=== PATIENT | female | born 1995 | race Two or more races ===

== ENCOUNTER → 2017-01-08 | Outpatient (REF) | payer OTHER | LOC: M SFHCLERA 15:23 | PROVIDERS: ATTEND Nurse Practitioner Family | DX: R10.33 Periumbilical pain (principal) ==

== ENCOUNTER 2017-02-13 23:06 | Emergency (ER) | payer BC, OTHER ==
[~2017-02-13] VITALS: Ht 165.1 cm; Wt 58.1 kg
[2017-02-14 00:29] LABS: BASO % 0.6 % (0.0-1.0); EOS # 0.2 K/mm3 (0.0-0.50); EOS % 2.8 % (0.0-3.0); LARGE UNSTAINED CELL # 0.1 K/mm3 (0.0-0.4); LARGE UNSTAINED CELL % 1.5 % (0.0-4.0); LYMPH # 2.3 K/mm3 (1.5-6.5); LYMPH % 28.5 % (24.0-44.0); MEAN CORPUSCULAR HEMOGLOBIN 28.1 pg (27.0-33.0); MEAN CORPUSCULAR HGB CONC 33.4 g/dl (32.0-36.5); MEAN CORPUSCULAR VOLUME 84.1 fl (80.0-96.0); MONO # 0.5 K/mm3 (0.0-0.8); MONO % 6.3 % (0.0-5.0); NEUTROPHILS # 4.7 K/mm3 (1.8-7.7); NEUTROPHILS % 60.3 % (36.0-66.0); PLATELET COUNT, AUTOMATED 195 k/mm3 (150-450); RED CELL DISTRIBUTION WIDTH 13.4 % (11.5-14.5); WHITE BLOOD COUNT 7.8 K/mm3 (4.0-10.0)
[2017-02-14 00:55] LABS: CONTROL LINE HCG INT CTR LINE PRESENT
[2017-02-14 01:03] LABS: ALBUMIN 3.4 GM/DL (3.2-5.2); ALBUMIN/GLOBULIN RATIO 0.94 (1.00-1.93); ALKALINE PHOSPHATASE 62 U/L (45-117); ALT/SGPT 22 U/L (12-78); AMYLASE 55 U/L (25-115); ANION GAP 6 MEQ/L (8-16); AST/SGOT 16 U/L (15-37); BILIRUBIN,DIRECT < 0.1 MG/DL (0.0-0.2); BILIRUBIN,TOTAL 0.1 MG/DL (0.2-1.0); BLOOD UREA NITROGEN 16 MG/DL (7-18); CALCIUM LEVEL 8.4 MG/DL (8.5-10.1); CARBON DIOXIDE LEVEL 29 MEQ/L (21-32); CHLORIDE LEVEL 105 MEQ/L (98-107); CREATININE FOR GFR 0.81 MG/DL (0.55-1.02); GLUCOSE, FASTING 91 MG/DL (70-105); POTASSIUM SERUM 3.8 MEQ/L (3.5-5.1); SODIUM LEVEL 140 MEQ/L (136-145)
[2017-02-14 02:53] VITALS: BP 111/54
== END 2017-02-14 02:53 | disposition home or self-care (01) ==
LOC: M ED 02-14 00:18
DX: K56.41 Fecal impaction (principal)

== ENCOUNTER 2017-03-24 11:50 | Emergency (ER) | payer OTHER, BC ==
[~2017-03-24] VITALS: Ht 165.1 cm; Wt 61.4 kg
[2017-03-24] MEDS ORDERED: IBUPROFEN 400 MG TAB PO ONE (13:45)
[2017-03-24] MEDS ORDERED: ACETAMINOPHEN TAB 650MG DOSE (2X325MG) PO ONE (13:45)
[2017-03-24 14:47] VITALS: BP 122/64
== END 2017-03-24 14:48 | disposition home or self-care (01) ==
LOC: M ED 11:50
DX: S09.90XA Unspecified injury of head, initial encounter (principal); R51 Headache; V43.52XA Car driver injured in collision with other type car in traffic accident, initial encounter; Y92.410 Unspecified street and highway as the place of occurrence of the external cause; Z91.030 Bee allergy status

== ENCOUNTER 2017-04-26 16:50 | Emergency (ER) | payer OTHER ==
[~2017-04-26] VITALS: Ht 160 cm; Wt 61.4 kg
[2017-04-26] MEDS ORDERED: LEVO25TA5 PO (17:02)
[2017-04-26] MEDS ORDERED: PERCOCET 5MG/325MG TAB PO ONE (18:00)
[2017-04-26] MEDS ORDERED: NAPR500T PO (18:37)
[2017-04-26 18:50] VITALS: BP 133/59
--- NOTE | 2017-04-27 08:07 | REP ---
Chest x-ray: Two views. History: Trauma . Comparison study: No comparison . Findings: The lungs are well inflated and free of infiltrate. The pleural angles are sharp. The heart size is normal. Pulmonary vasculature is not increased. No significant bony abnormality is seen. Impression: Negative chest x-ray. Signed by Marcelo Anderson MD 04/27/2017 07:57 A
== END 2017-04-26 18:52 | disposition home or self-care (01) ==
LOC: M ED 16:50
DX: S20.219A Contusion of unspecified front wall of thorax, initial encounter (principal); V43.62XA Car passenger injured in collision with other type car in traffic accident, initial encounter; Y92.410 Unspecified street and highway as the place of occurrence of the external cause; Y93.9 Activity, unspecified; Y99.9 Unspecified external cause status; Z79.899 Other long term (current) drug therapy; Z91.030 Bee allergy status

== ENCOUNTER 2017-05-14 20:19 | Emergency (ER) | payer OTHER ==
[~2017-05-14] VITALS: Ht 165.1 cm; Wt 60.0 kg
[~2017-05-14 20:19] MED LIST: LEVO25TA5 PO; NAPR500T PO
[2017-05-14] MEDS ORDERED: KETOROLAC TROMETHAMINE 10 MG TAB PO ONE (22:00)
--- NOTE | 2017-05-14 22:40 | REPUSA ---
CLINICAL HISTORY: Right renal colic. TECHNIQUE: CT abdomen and pelvis without contrast. Total DLP 289.5 mGy*cm COMPARISON: February 14, 2017. CT ABDOMEN WITHOUT CONTRAST: Lung bases: No lung base infiltrate or effusion. Liver: No intrahepatic ductal dilation. Gallbladder: Nodistended. Pancreas: No pancreatic duct dilation. Bowel loops: Nondistended. Spleen: Normal size. Adrenals: Normal size. Right kidney: No stones or hydronephrosis. Left kidney: No stones or hydronephrosis. Aorta: Normal caliber. Peritoneum: No free air. CT PELVIS WITHOUT CONTRAST: Colon: Nondistended. Appendix: Normal appendix is seen. Bladder: Nondistended. Pelvic organs: Unremarkable. Peritoneum: No fluid. Skeleton: No acute findings. IMPRESSION: No acute abdominal findings. No nephrolithiasis or hydronephrosis to explain right flank symptoms.
[2017-05-14] MEDS ORDERED: NAPR500T PO (23:00)
[2017-05-14 23:07] VITALS: BP 146/64
== END 2017-05-14 23:30 | disposition home or self-care (01) ==
LOC: M ED 20:19
DX: M62.838 Other muscle spasm (principal); E07.9 Disorder of thyroid, unspecified; F17.210 Nicotine dependence, cigarettes, uncomplicated; Z91.030 Bee allergy status; Z79.899 Other long term (current) drug therapy